=== PATIENT | female | born 1935 | race Caucasian/White ===

== ENCOUNTER 2016-05-19 16:15 | Inpatient (IN) | payer MEDICARE ==
[2016-05-19] MEDS ORDERED: LACTATED RINGERS 2,000 ML ONE (17:11)
[2016-05-19 17:12] LABS: ABSOLUTE NEUTROPHIL COUNT 7.2 K/mm3 (1.8-7.7); BASO % 0.4 % (0.2-1.0); EOS # 0.1 (0.0-0.5); EOS % 0.8 % (0.9-2.9); HEMATOCRIT 37.4 % (37.0-47.0); IMM NEUT% 0.4 % (0-1); LYMPH # 1.8 (1.0-4.8); LYMPH % 17.3 % (15-45); MEAN CELL VOLUME 91.4 fl (81.0-99.0); MEAN CORPUSCULAR HEMOGLOBIN 29.3 pg (27.0-31.0); MEAN CORPUSCULAR HGB CONC 32.1 g/dl (33.0-37.0); MEAN PLATELET VOLUME 11.2 fl (7.4-10.4); MONO # 1.2 (0.0-0.8); MONO % 11.5 % (4-12); NEUT % 69.6 % (43-75); PLATELET COUNT 256 K/mm3 (130-400); RED CELL DISTRIBUTION WIDTH 13.9 % (11.5-14.5); URINE BILIRUBIN NEGATIVE (NEGATIVE); URINE BLOOD 1+ (NEGATIVE); URINE GLUCOSE (UA) 1+ (NEGATIVE); URINE LEUKOCYTE ESTERASE TRACE (NEGATIVE); URINE NITRITE NEGATIVE (NEGATIVE); URINE PROTEIN 3+ (NEGATIVE); URINE UROBILINOGEN NORMAL (0-1 mg/dl)
[2016-05-19 17:18] LABS: URINE APPEARANCE SL CLOUDY; URINE COLOR YELLOW
[2016-05-19 17:19] LABS: URINE BACTERIA 4+; URINE EPITHELIAL CELLS 0 /hpf; URINE WBC >50 /hpf
[2016-05-19 17:28] LABS: ALB/GLOB RATIO 1.1 (>1.0); ALBUMIN 3.2 gm/dL (3.5-5.7); CALCIUM 9.3 mg/dL (8.6-10.3)
[2016-05-19] MEDS ORDERED: CEFTRIAXONE 1 GRAM DUPLEX 50 ML IV ONE (17:42)
[2016-05-19] MEDS ORDERED: BISACODYL 5 MG TABLET.EC PO PRN (18:48)
[2016-05-19] MEDS ORDERED: BISACODYL 10 MG SUP PR PRN (18:48)
[2016-05-19] MEDS ORDERED: SODIUM CHLORIDE 0.9% 100 ML IV PRN (18:48)
[2016-05-19] MEDS ORDERED: ACETAMINOPHEN 325 MG TABLET PO PRN (18:48)
[2016-05-19] MEDS ORDERED: BLISTEX LIPSTICK 1 EACH TP PRN (18:48)
[2016-05-19] MEDS ORDERED: MAGNESIUM HYDROXIDE 30 ML UDCUP PO PRN (18:48)
[2016-05-19] MEDS ORDERED: MENTHOL/CETYLPYRD 1 EACH LOZENGE PO PRN (18:48)
[2016-05-19] MEDS ORDERED: SODIUM CHLORIDE 0.9% 1,000 ML IV SCH (19:00)
[2016-05-19 19:19] VITALS: BMI 30.7
[2016-05-19] MEDS: DOCUSATE SODIUM 100 MG CAPSULE PO SCH (21:32)
[2016-05-19] MEDS: INSULIN ASPART (DOSE) 100 UNITS/1 ML SUB-Q PRN (22:15)
[2016-05-20 07:00] LABS: ABSOLUTE NEUTROPHIL COUNT 7.1 K/mm3 (1.8-7.7); BASO % 0.3 % (0.2-1.0); EOS % 0.3 % (0.9-2.9); HEMATOCRIT 33.9 % (37.0-47.0); HEMOGLOBIN 11.1 gm/l (12.0-16.0); IMM NEUT% 0.3 % (0-1); LYMPH # 1.2 (1.0-4.8); LYMPH % 12.2 % (15-45); MEAN CELL VOLUME 88.7 fl (81.0-99.0); MEAN CORPUSCULAR HEMOGLOBIN 29.1 pg (27.0-31.0); MEAN CORPUSCULAR HGB CONC 32.7 g/dl (33.0-37.0); MEAN PLATELET VOLUME 10.9 fl (7.4-10.4); MONO # 1.1 (0.0-0.8); MONO % 12.1 % (4-12); NEUT % 74.8 % (43-75); PLATELET COUNT 205 K/mm3 (130-400); RED CELL DISTRIBUTION WIDTH 13.8 % (11.5-14.5)
--- NOTE | 2016-05-20 07:24 | HP ---
Enma Negron [id number] DATE OF ADMISSION: May 19, 2016 CHIEF COMPLAINT: Altered mental status. HISTORY OF PRESENT ILLNESS: The patient is an 81-year-old female who is a resident at the [facility] facility and her condition changed today. This morning she had a fever up to 100.6 and had garbled speech. Her family was contacted to check in on her and noticed that she was somnolent and confused at times. Difficulty to arouse. She was wanting to sleep a lot and tried to chew up her pills which she normally swallows whole. Based on her altered behavior and the fever family brought her to the clinic for further evaluation. They were not able to complete her work up there and the family decided to take her to the emergency department for further evaluation where she was referred to the hospitalist service for a possible urinary tract infection. She had evidence of pyuria and bacteriuria. She was given fluid bolus and seemed to improve with fluids and antibiotics, but based on her prior encephalopathy and fever she was referred to the hospitalist service for admission. REVIEW OF SYSTEMS: Negative for any recent upper respiratory symptoms, cough, dyspnea, chest pain, wheezing, shortness of breath, or palpations, There has been no reports of any nausea or vomiting. She denies any abdominal pain or back pain. No new arthralgias. No headaches, fainting, blackouts, or seizures. In fact she denies any urinary complaints or urinary frequency. Review of systems is otherwise negative. PAST MEDICAL HISTORY: Significant for a recent hospitalization for a left frontal stroke on April 09, 2016. She was hospitalized at [facility] from April 09 until April 17 and then went to [facility] inpatient rehab until April 28. She then has gone to [facility] ([facility] where she has done well. Her stroke mainly involved the left frontal area and caused an expressive aphasia. No significant motor weakness was identified. She had a wide complex tachycardia while at the hospital and her beta clarisse dose was increased. It looks like her insulin dose may have been adjusted as well. There was some concerns about possible sleep apnea and she has been referred for an outpatient sleep study, but has not yet had that evaluation. She has history of a hospitalization in March 2015 for pneumonia. At that time, she had an ejection fraction of 50% to 55%. She has been followed by [facility] for coronary artery disease which has been stable involving the [place] vessels. She has had no angina. She has had longstanding adult onset diabetes. She has been on insulin in the past, but is currently on oral medications. She has had chronic essential hypertension as well as acquired hypothyroidism on thyroid replacement. She has had dyslipidemia and obesity. PAST SURGICAL HISTORY: Significant for a cardiac catheterization in 2010, stent in the left anterior descending in 2004, a stent in the proximal artery in 1998. She had a three vessel coronary artery bypass in 2010. She has had bilateral cataract surgeries. She has had a prior hysterectomy. She has had left eye surgery for Graves ophthalmopathy. ALLERGIES: DOCUMENTED TO IODINE, LISINOPRIL, SULFA, AND CLINDAMYCIN. CURRENT MEDICATIONS: Obtained from medical record at [facility] includes: 1. Fish oil 1000 mg daily. 2. Multivitamin once daily. 3. Glucotrol 5 mg every morning. 4. Vytorin 10/20 mg daily in the evening. 5. Potassium chloride 20 mEq in the morning, 10 mEq in the evening. 6. Protonix 40 mg by mouth daily. 7. Lopressor 100 mg by mouth twice daily. 8. Cozaar 50 mg by mouth twice daily. 9. Levothroid 125 mcg every morning. 10. Lactobacillus 2 daily. 11. Lasix 40 mg by mouth twice daily. 12. Plavix 75 mg by mouth daily. 13. Amlodipine 5 mg by mouth twice daily. FAMILY HISTOR: Significant for her father who in his 70's of colon cancer. Mother in her 70's of ovarian cancer. SOCIAL HISTORY: Patient is retired. She is . She is currently living at [facility] She has 5 children. She has never smoked. There is no alcohol use. Her primary care provider is Dr. Clarence Martinez. Her code status was not discussed today. There is no POLST form on file and will make her full code by default. PHYSICAL EXAMINATION: VITAL SIGNS: Temperature 97.8, pulse 58, blood pressure 163/68, respirations 20, oxygen saturation 88% on room air, 94% on 2 liters. Body mass index 30.7, weight is 76.2 kg. GENERAL: This is an obese female in no acute distress. HEENT: Shows pupils equal, round, and reactive to light. Extraocular movements are intact. No oral lesions are present. LUNGS: Clear to auscultation bilaterally. CARDIOVASCULAR: Reveals a regular rate and rhythm without a murmur. ABDOMEN: Obese, soft, nontender, nondistended with positive bowel sounds. EXTREMITIES: Show trace lower extremity edema. NEUROLOGIC: Currently is nonfocal. She is alert and oriented x3. LABORATORY STUDIES: Included a urinalysis showing over 50 white cells per high power field and 4+ bacteria although, the nitrite is negative and leukocyte esterase shows trace. Chemistry profile shows sodium 139, potassium 3.5, carbon dioxide 33, BUN 13, creatinine 1.0, glucose 144. Liver function tests are normal. Lactate is 1.3. CBC shows a white count of 10.4, hemoglobin of 12.0, platelet count of 256,000. Influenza is negative. ASSESSMENT AND PLAN: Patient has acute encephalopathy associated with an acute bacterial urinary tract infection complicated by adult onset diabetes and hypertension. She also has late effects of a stroke with speech disturbance and some mild swallowing disturbance. She has hypercholesterolemia and coronary artery disease which appear to be stable. She also has hypothyroidism stable on thyroid replacement. She is admitted to the med surg unit. She is treated with Rocephin. I anticipate a 48 hour stay as culture will likely take 48 hours to come back. In meantime, she will get physical therapy and occupational therapy. Venous thromboembolism risk is moderate and prophylaxis is prescribed in the form mechanical measures. She is also on Plavix. We will clarify code status hopefully before discharge. Further treatment and recommendations will depend on her hospital course. JOB: [id number] CC: Dr. Clarence Martinez
[2016-05-20 07:25] LABS: CALCIUM 8.6 mg/dL (8.6-10.3)
[2016-05-20] MEDS: LEVOTHYROXINE SODIUM 125 MCG TABLET PO SCH (07:27)
[2016-05-20] MEDS ORDERED: FATTY ACIDS PO SCH (09:00)
[2016-05-20] MEDS ORDERED: OMEGA PO SCH (09:00)
[2016-05-20] MEDS ORDERED: FISH OIL PO SCH (09:00)
[2016-05-20] MEDS: METOPROLOL TARTRATE 25 MG TABLET PO SCH ×2 (09:30→21:02)
[2016-05-20] MEDS: PANTOPRAZOLE 40 MG TABLET DR PO SCH (09:31)
[2016-05-20] MEDS: CLOPIDOGREL BISULFATE 75 MG TABLET PO SCH (09:31)
[2016-05-20] MEDS: MULTIVITAMINS 1 TAB TABLET PO SCH (09:31)
[2016-05-20] MEDS: FUROSEMIDE 40 MG TABLET PO SCH ×2 (09:32→16:47)
[2016-05-20] MEDS: AMLODIPINE BESYLATE 5 MG TABLET PO SCH ×2 (09:32→21:02)
[2016-05-20] MEDS: LOSARTAN POTASSIUM 50 MG TABLET PO SCH ×2 (09:32→21:03)
[2016-05-20] MEDS: DOCUSATE SODIUM 100 MG CAPSULE PO SCH ×2 (09:32→21:02)
[2016-05-20] MEDS: POTASSIUM CHLORIDE 20 MEQ TAB.PRT.SR PO SCH (09:33)
[2016-05-20] MEDS: GLIPIZIDE 5 MG TABLET PO SCH (09:33)
--- NOTE | 2016-05-20 11:17 | PDOC43 ---
- Subjective Chief Complaint: fever, confusion improving Subjective: Denies Vomiting, Denies Fever - Objective Vital Signs Temperature 98.6 F 05/20/16 07:38 Pulse Rate 64 05/20/16 07:38 Respiratory Rate 14 05/20/16 07:38 Blood Pressure 169/65 05/20/16 07:38 O2 Saturation by Pulse Oximetry 95 05/20/16 07:38 Oxygen Delivery Method Nasal Cannula Oxygen Flow Rate 2 Intake and Output 05/19/16 05/20/16 05/21/16 06:59 06:59 06:59 Intake Total 150 Output Total 350 450 Balance -200 -450 General: Alert, Cooperative, No Acute Distress HEENT: Mucous membr. moist/pink Lungs: Clear to Auscultation Bilaterally Cardiovascular: Regular Rate and Rhythm Abdomen: Soft, Normal Bowel Sounds, Non-Distended, No Tenderness Extremities: No Edema Skin: Warm, Intact Neurological: Cranial Nerves 3-12 Intact, Other (some expressive aphasia when fatigued but overall communicates well) Laboratory 05/20/16 06:45 05/20/16 06:45 05/20/16 05/20/16 05/19/16 07:31 06:45 22:12 RBC 3.82 L MCHC 32.7 L POC Capillary Glucose 219 H 243 H Current Medications: Current meds reviewed in EMR. - Problems: Assessment/Plan (1) Encephalopathy acute Status: Acute Assessment/Plan: present on admit, assoc. with fever and suspected UTI-improved (2) UTI (urinary tract infection) Qualifiers: Urinary tract infection type: acute cystitis Hematuria presence: without hematuria Qualifier Code: (N30.00) Acute cystitis without hematuria Status: Acute Assessment/Plan: assoc with fever and encephalopathy, improving on rocephin-await Cx results (3) Diabetes mellitus type II, controlled Qualifiers: Diabetes mellitus complication status: without complication Diabetes mellitus jail insulin use: without deckhand use Qualifier Code: (E11.9 ) Type 2 diabetes mellitus without complications Status: Chronic Assessment/Plan: on glucotrol and correction Novolog (4) Hypertension Qualifiers: Hypertension type: essential hypertension Qualifier Code: (I10) Essential (primary) hypertension Status: Chronic Assessment/Plan: stable on usual meds (5) Hypoxemia Status: Acute Assessment/Plan: suspect due to untreated obst. sleep apsusi, has referral for sleep study in process-check a CXR, oxygen prn (6) Late effects of cerebrovascular disease, fluency disorder Status: Acute Assessment/Plan: mild exp. aphasia at times-stable (7) CAD (coronary artery disease) Qualifiers: Coronary Disease-Associated Artery/Lesion type: [place] artery [place] vs. transplanted heart: [place] heart Associated angina: without angina Qualifier Code: (I25.10) Atherosclerotic heart disease of [place] coronary artery without angina pectoris Status: Chronic Assessment/Plan: stable (8) Hypothyroidism Qualifiers: Hypothyroidism type: acquired Qualifier Code: (E03.9) Hypothyroidism, unspecified Status: Chronic Assessment/Plan: stable VTE Prophylaxis: mech measures plus Plavix Disposition: probably return to assisted living in am
[2016-05-20] MEDS: INSULIN ASPART (DOSE) 100 UNITS/1 ML SUB-Q PRN ×2 (11:52→17:24)
[2016-05-20] MEDS: INSULIN GLARGINE (DOSE) 100 UNITS/ML UNIT SUB-Q SCH ×2 (11:52→21:01)
[2016-05-20] MEDS ORDERED: PUMP TUBING ONE (16:55)
[2016-05-20] MEDS ORDERED: CEFTRIAXONE 1 GRAM DUPLEX 1 G in Premix (D5W) 50 ml 1 EACH IV SCH (17:00)
[2016-05-20] MEDS ORDERED: EZETIMIBE 10 MG TABLET PO SCH (20:00)
[2016-05-20] MEDS ORDERED: POTASSIUM CHLORIDE 10 MEQ TAB.SR PO SCH (20:00)
[2016-05-20] MEDS ORDERED: SIMVASTATIN 10 MG TABLET PO SCH (20:00)
[2016-05-21] MEDS: LEVOTHYROXINE SODIUM 125 MCG TABLET PO SCH (07:56)
[2016-05-21 08:00] VITALS: BP 170/68
[2016-05-21] MEDS: LOSARTAN POTASSIUM 50 MG TABLET PO SCH (08:58)
[2016-05-21] MEDS: DOCUSATE SODIUM 100 MG CAPSULE PO SCH (08:58)
[2016-05-21] MEDS: GLIPIZIDE 5 MG TABLET PO SCH (08:58)
[2016-05-21] MEDS: FUROSEMIDE 40 MG TABLET PO SCH (08:59)
[2016-05-21] MEDS: INSULIN GLARGINE (DOSE) 100 UNITS/ML UNIT SUB-Q SCH (08:59)
[2016-05-21] MEDS: POTASSIUM CHLORIDE 20 MEQ TAB.PRT.SR PO SCH (08:59)
[2016-05-21] MEDS: METOPROLOL TARTRATE 25 MG TABLET PO SCH (09:00)
[2016-05-21] MEDS: AMLODIPINE BESYLATE 5 MG TABLET PO SCH (09:02)
[2016-05-21] MEDS: MULTIVITAMINS 1 TAB TABLET PO SCH (09:02)
[2016-05-21] MEDS: PANTOPRAZOLE 40 MG TABLET DR PO SCH (09:02)
[2016-05-21] MEDS: CLOPIDOGREL BISULFATE 75 MG TABLET PO SCH (09:02)
[2016-05-21] MEDS: INSULIN ASPART (DOSE) 100 UNITS/1 ML SUB-Q PRN ×2 (09:03→11:49)
[2016-05-21] MEDS ORDERED: CEPHALEXIN 500 MG CAPSULE PO SCH (10:00)
--- NOTE | 2016-05-21 12:38 | RAD ---
05/21/2016 12:33 PM CHEST - 2 VIEWS History: Hypoxemia Comparison: 03/29/2015 Findings: Two views of the chest are obtained. The lungs there is been improvement in the left sided effusion in comparison to prior study. Tiny bilateral effusions may be present with associated compressive atelectasis. Underlying pneumonia cannot be excluded. Continued prominence to the right hilum is identified though the left grossly unremarkable. The cardiomediastinal silhouette is unremarkable.. The osseous structures are intact.. Median sternotomy wires are present. IMPRESSION: Improvement in the patient's effusion and edema from prior study. Tiny effusions are still persistent with prominence of the right hilum. Correlation with exam for venous congestion is recommended..
--- NOTE | 2016-05-21 13:43 | DS ---
Enma Negron [id number] DATE OF ADMISSION: May 19, 2016 DATE OF DISCHARGE: May 21, 2016 DISCHARGE DIAGNOSES: 1. Acute encephalopathy due to afebrile urinary tract infection. The urinary tract infection was caused Escherichia coli. 2. Adult onset diabetes. 3. Chronic essential hypertension. 4. Patient also has late effects of a stroke with speech disturbance and some mild swallowing dysfunction. 5. Chronic hypercholesterolemia. 6. Stable coronary artery disease involving the [place] vessels. 7. Hypothyroidism. TO SUMMARIZE THE ADMISSION AND HOSPITAL COURSE: The patient is an 81-year-old female resident of [facility] brought to the [facility] emergency department by her family because of fever and garble speech. Work up in the emergency department showed evidence of bacteriuria and pyuria. Her white blood cell count was normal. At the time of her evaluation she was not febrile. She did have over 50 white blood cells per high power field on her urinalysis. Her electrolytes and urine were normal. Lactate was normal and she was referred to the hospitalist service for admission. During her hospital stay she was treated with Rocephin. She remained afebrile. Urine culture grew E-coli which was coto sensitive. Patient was noted to have some mild hypoxemia particularly while at rest felt to be due to untreated longstanding obstructive sleep apnea and arrangements were made for home oxygen therapy. A chest x-ray preformed on the day of discharge showed no acute abnormality and small bilateral pleural effusions with cardiomegaly. The patient was felt to be medically stable for discharge on May 21. Her encephalopathy improved back to her baseline dementia. PHYSICAL EXAMIANTION: VITAL SIGNS: At discharge her vital showed a temperature of 98.0, pulse 64, blood pressure of 170/68, respirations 19, oxygen saturations fluctuated, but were 87% on room air up to 91% on room air. Body mass index was 30.7 and weight was 76.2 kg. GENERAL: This is an obese elderly female in acute distress. HEENT: Unremarkable. LUNGS: Clear to auscultation bilaterally. CARDIOVASCULAR: Reveals a regular rate and rhythm without a murmur. ABDOMEN: Obese, soft, nontender, nondistended with positive bowel sounds. EXTREMITIES: Show no peripheral edema. LABORATORY STUDIES: Included chemistry profile on May 20 showing normal electrolytes and a creatinine of 0.8. CBC on May 20 showed a normal white count, hemoglobin of 11.1, and a platelet count of 205,000. DISPOSITION: Back to [facility] living. She will get skin care, bowel care, podiatry care per house protocol. Her flu and pneumonia vaccinations are up to date. DISCHARGE MEDICATIONS: She was prescribed: 1. Lantus insulin 10 units subcutaneously twice daily due to elevation in her blood sugars. 2. Keflex 500 mg three times daily for ten more days for her urinary tract infection. She will resume her previous home medications which include: 1. Amlodipine 5 mg by mouth twice daily. 2. Plavix 75 mg by mouth daily. 3. Lasix 40 mg by mouth twice daily. 4. Probiotic two tablets daily. 5. Levothroid 125 mcg daily. 6. Cozaar 50 mg twice daily. 7. Lopressor 100 mg twice daily. 8. Protonix 40 mg daily. 9. Potassium chloride 20 mEq in the morning and 10 mEq in the evening. 10. Vytorin 10/20 mg in the evening. 11. Glucotrol 5 mg every morning. 12. Multivitamin once daily. 13. [place]iteside 3 fatty acids 1000 mg daily. DISCHARGE INSTRUCTIONS: Arrangements were made for home oxygen therapy at 2 liters by nasal cannula through [facility]. She will also get rehab services with physical therapy and occupational therapy evaluate and treat. She has a follow up appointment scheduled with Dr. Clarence Martinez on June 12 at 2:50 p.m. and she already has made arrangements to get an outpatient sleep study through the sleep center in [place]. CODE STATUS: Full code. ALLERGIES: INCLUDE IODINE, LISINOPRIL, SULFA, AND CLINDAMYCIN. DIET: She will be on a diabetic diet with regular texture. ACTIVITY: As tolerated. Weightbearing as tolerated. JOB: [id number] CC: Dr. Clarence Martinez
== END 2016-05-21 14:00 | DRG 71 ==
LOC: ED 16:15 → MS 17:56
PROVIDERS: ADMIT Family Medicine; ATTEND Family Medicine
DX: G93.40 Encephalopathy, unspecified (principal); N39.0 Urinary tract infection, site not specified; I67.89 Other cerebrovascular disease; B96.20 Unspecified Escherichia coli [E. coli] as the cause of diseases classified elsewhere; E11.9 Type 2 diabetes mellitus without complications; I10 Essential (primary) hypertension; E78.00 Pure hypercholesterolemia, unspecified; I25.10 Atherosclerotic heart disease of native coronary artery without angina pectoris; E03.9 Hypothyroidism, unspecified

== ENCOUNTER 2016-06-28 09:53 | Inpatient (IN) | payer MEDICARE ==
[2016-06-28] MEDS ORDERED: FUROSEMIDE 40 MG/4 ML VIAL ONE (10:19)
[2016-06-28] MEDS ORDERED: ALBUTEROL/IPRATROPIUM 2.5/0.5 MG 3 ML/EACH DOSE ONE (10:30)
[2016-06-28 10:56] LABS: SPECIFIC GRAVITY 1.015 (1.001-1.030); URINE BILIRUBIN NEGATIVE (NEGATIVE); URINE BLOOD 1+ (NEGATIVE); URINE GLUCOSE (UA) NEGATIVE (NEGATIVE); URINE LEUKOCYTE ESTERASE NEGATIVE (NEGATIVE); URINE NITRITE NEGATIVE (NEGATIVE); URINE PROTEIN 3+ (NEGATIVE); URINE UROBILINOGEN 1 mg/dL (0-1 mg/dl)
[2016-06-28 10:56] LABS: ABSOLUTE NEUTROPHIL COUNT 9.4 K/mm3 (1.8-7.7); BASO # 0.1 K/mm3 (0.0-0.2); BASO % 0.4 % (0.2-1.0); EOS # 0.1 (0.0-0.5); EOS % 0.5 % (0.9-2.9); HEMATOCRIT 38.7 % (37.0-47.0); HEMOGLOBIN 12.3 gm/l (12.0-16.0); IMM NEUT% 0.2 % (0-1); LYMPH # 1.1 (1.0-4.8); LYMPH % 9.2 % (15-45); MEAN CELL VOLUME 89.8 fl (81.0-99.0); MEAN CORPUSCULAR HEMOGLOBIN 28.5 pg (27.0-31.0); MEAN CORPUSCULAR HGB CONC 31.8 g/dl (33.0-37.0); MEAN PLATELET VOLUME 10.5 fl (7.4-10.4); MONO # 1.5 (0.0-0.8); MONO % 12.5 % (4-12); NEUT % 77.2 % (43-75); PLATELET COUNT 294 K/mm3 (130-400); RED CELL DISTRIBUTION WIDTH 14.2 % (11.5-14.5)
[2016-06-28 10:57] LABS: URINE APPEARANCE HAZY; URINE COLOR AMBER
[2016-06-28 11:03] LABS: URINE AMORPHOUS SEDIMENT MODERATE; URINE BACTERIA 4+; URINE EPITHELIAL CELLS 0-1 /hpf; URINE WBC 0-1 /hpf
[2016-06-28 11:14] LABS: ALB/GLOB RATIO 1.2 (>1.0); ALBUMIN 3.5 gm/dL (3.5-5.7); CALCIUM 9.2 mg/dL (8.6-10.3)
--- NOTE | 2016-06-28 11:22 | RAD ---
Name: JUAN M DENTON Exam: Single view chest Comparison: 06/26/2016 Clinical history: Increased shortness of breath Findings: Single view of the chest is submitted. This is a low volume exam. Heart is enlarged but similar in size to the prior. There is no mediastinal widening or hilar enlargement. Diffuse vascular congestion is present. There is some interstitial edema. There is no significant effusion and there is no pneumothorax. Midline sternotomy wires are present. Regional skeleton is within normal limits for the patient's age. Impression: Congestive heart failure
[2016-06-28] MEDS ORDERED: BISACODYL 5 MG TABLET.EC PO PRN (12:57)
[2016-06-28] MEDS ORDERED: ALBUTEROL/IPRATROPIUM 2.5/0.5 MG 3 ML/EACH DOSE NEB PRN (12:57)
[2016-06-28] MEDS ORDERED: MAGNESIUM HYDROXIDE 30 ML UDCUP PO PRN (12:57)
[2016-06-28] MEDS ORDERED: BLISTEX LIPSTICK 1 EACH TP PRN (12:57)
[2016-06-28] MEDS ORDERED: MENTHOL/CETYLPYRD 1 EACH LOZENGE PO PRN (12:57)
[2016-06-28] MEDS ORDERED: BISACODYL 10 MG SUP PR PRN (12:57)
[2016-06-28] MEDS ORDERED: NITROGLYCERIN 0.4 MG/TAB.SUBL BOT SL PRN (13:57)
[2016-06-28 14:37] VITALS: BMI 32.8
--- NOTE | 2016-06-28 15:10 | HP ---
DIEGO DENTON [id number] DATE OF ADMISSION: June 28, 2016 CHIEF COMPLAINT: Dyspnea. HISTORY OF PRESENT ILLNESS: The patient is an 81-year-old female with recent hospitalizations for left frontal stroke, March,, and urinary tract infection with altered mental status late April,. This week on Thursday she was noted to have some increased swelling of the legs, and they spoke with the nurse on the phone and later saw Dr. Delgado on Thursday who doubled her Lasix. She had not had any preceding events or medication changes that were likely to have provoked this. She had been busy going to activities including a and an eye doctor appointment. She followed up with Dr. Martinez on and had a chest x-ray and had generally been doing better. On Thursday was doing pretty good, but this morning woke up sweating and could not breathe. PAST MEDICAL HISTORY: Remarkable for: 1. Stroke with some aphagia which has since improved in 2015. 2. She has had diabetes and uses Lantus as well as glipizide. 3. She has had a history of coronary artery disease. 4. History of hypertension. 5. History of hypothyroidism. 6. History of dyslipidemia. 7. History of obesity. 8. History of Ward's esophagus. 9. History of atrial fibrillation after surgery but not recently. She is on Plavix. She has had echocardiograms in the past showing pulmonary artery systolic pressure 65 to 70 mmHg. Restrictive diastolic dysfunction, ejection fraction 52% last done in 2014. PAST SURGICAL HISTORY: 1. Stent placed in 1998. She had another stent in 2004. Catheterization in 2010 which resulted in a coronary artery bypass graft in 2010. 2. She has had bilateral cataract replacements. 3. Hysterectomy. 4. Surgery for left eye problems related to hypothyroidism at [facility]. ALLERGIES: She is listed as being allergic to: 1. IODINE. 2. LISINOPRIL. 3. SULFA. 4. CLINDAMYCIN. 5. METFORMIN. MEDICATIONS: Taken from the Medication Administration Record at [facility] show: 1. Amlodipine 5 orally twice daily. 2. Clonidine 0.2 mg orally twice daily. 3. Clopidogrel 75 mg daily. 4. Cranberry 200 mg orally twice daily. 5. Vytorin 10/20 one orally daily in the evening. 6. Lasix 40 mg orally twice daily increased recently to 80 mg orally twice daily. 7. Glipizide 5 mg orally in the morning. 8. Lantus unspecified dosage at this time but the old dosage was 10 units every 12 hours. We are awaiting the followup fax from [facility] on this. 9. Lactobacillus two orally daily. 10. Levothyroxine 125 mcg daily. 11. Losartan 50 mg orally twice daily. 12. Metoprolol tartrate 100 mg orally twice daily. 13. Multivitamin one orally daily. 14. Nitroglycerin 0.4 mg sublingually every five minutes as needed for chest pain. 15. Fish oil one orally daily. 16. Pantoprazole 40 mg orally daily. 17. Potassium chloride 20 mEq in the morning and 10 mEq in the evening. 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 She is . She is currently staying at [facility]. She has five children. No smoking. History of alcoholism, quit 35 years ago. She is [employer]. Likes family and reading although has not been able to do her normal activities since her stroke. FAMILY HISTORY: Father in his 70s of colon cancer. Mom in her 70s of ovarian cancer. REVIEW OF SYSTEMS: Eyes, she was seen by her eye doctor this week and was thought to have a possible detached retina although they are not sure. She is noted to have poor central vision as well. Ears are okay. She has some headache. Nose has been okay. Mouth, she had a dental appointment a while ago and was doing okay. Neck is okay. Breathing, she has had recent difficulties but no sputum. She has had some cough noted today. She has had no chest pain or chest pressure and has denied this even when asked earlier today. No nausea, no vomiting, no diarrhea. Perhaps a little constipation. No urinary complaints. She had complained that she felt like her face skin felt like it was crumbling recently but family has not noticed any rash or any changes. No breast complaints, no vaginal complaints. She had her stroke. She has had fairly stable activity tolerance up to this week, able to walk between 50 and 300 feet. She has had no recent falls. She did report being dizzy with some vertiginous symptoms during the night. PHYSICAL EXAM: GENERAL: Dyspneic, tired female doing better with BiPAP. VITAL SIGNS: Her vital signs show a pulse of 51, blood pressure 146/61, respirations 18, 96% saturation on BiPAP, 25% FiO2. HEAD: Head is normocephalic, atraumatic. EYES: Pupils are slightly small but appropriately reactive. Extraocular muscles are intact. No icterus is noted. EARS: Some cerumen is noted. Hearing appears to be adequate. NOSE: Is grossly unremarkable but difficult to visualize with the BiPAP mask on. MOUTH: Mucous membranes are moist. Dentition appears to be intact although visualized through a BiPAP mask. NECK: Some jugular venous distension suggested. No masses or thyromegaly noted. Patient has difficulty swallowing due to dry mouth. LUNGS: Fairly diminished air movement bilaterally with a few crackles noted at the base more on the left than the right. HEART: Bradycardic but no significant murmur noted. ABDOMEN: Large abdominal wall hernia is noted just to the left of the midline between the umbilicus and the xyphoid. It is approximately 2 to 3 cm in diameter. It is firm and not reducible. Patient indicates it is not particularly tender and has been there a long time. BREAST: Exam is deferred. GENITOURINARY: Exam is deferred. EXTREMITIES: Legs have trace edema bilaterally. Feet are in good condition. Nails in good repair. No ulcerations are noted. Pulses are good in feet bilaterally. Hands are unremarkable. NEUROLOGIC: She is able to squeeze hands on both sides and follow commands and answer questions although family reports she had been a little bit confused. LABORATORY: White count 12.1, hemoglobin 12.3, platelets 294, sodium 138, potassium 3.5, chloride 96, CO2 34, BUN 13, creatinine 0.9, glucose 128, AST 15, ALT 13, alkaline phosphatase 73, CK-MB 1.6, troponin is 0.03. BNP greater than 1250. Albumin 3.5, globulin 3.8. Urinalysis, 3+ protein, 5 to 10 red cells, 0 to 1 white cells, 4+ bacteria, 0 to 1 epithelial cells. IMAGING: Chest x-ray suggests congestive heart failure. Electrocardiogram shows sinus bradycardia at 56 beats per minute. VT 189, QRS 104, QTc 433, axis 56, nonspecific ST changes noted. ASSESSMENT AND PLAN: 1. Acute congestive heart failure on top of known chronic diastolic heart failure with known pulmonary hypertension and diastolic dysfunction. Plan BiPAP, cautious use of Lasix, echocardiography, monitor troponin and CK-MB. 2. History of pulmonary hypertension. Anticipate cautious use of diuretics. Previous ejection fraction was 55%. 3. Prior history of stroke. We will continue on Plavix. 4. History of coronary artery disease. We will be checking troponin and CK which so far have been negative. Continue on metoprolol. 5. History of atrial fibrillation but maintaining sinus bradycardia at this time. She is not on anticoagulation. 6. Diabetes mellitus type 2. We will be checking capillary blood glucoses and sliding scale, awaiting confirmation of the Lantus dose and will anticipate continuing on this as well. 7. Hypothyroidism. We will be checking a TSH. Continue on supplement. 8. History of Ward's esophagus. Will continue on the Protonix. 9. Acute respiratory failure due to congestive heart failure. Patient has good improvement after BiPAP, a dose Lasix and nebulizer treatment. We will continue to monitor and anticipate being able to wean later. 10. Venous thrombosis prophylaxis, anticipate use of enoxaparin. 11. Code status is DO NOT RESUSCITATE per POLST form. 12. Bacteruria with 3+ proteinuria suggested on the urine. We will be checking a culture although she has negative leukocyte esterase and negative nitrites noted. cc: Clarence Martinez M.D. Chandrakant Patel M.D.
[2016-06-28] MEDS: ENOXAPARIN SODIUM 40 MG/0.4 ML SYRINGE SUB-Q SCH (15:15)
[2016-06-28] MEDS: FUROSEMIDE 40 MG/4 ML VIAL IV SCH (15:59)
[2016-06-28] MEDS: Magnesium Oxide 400 MG TABLET PO SCH ×2 (16:29→20:08)
[2016-06-28] MEDS: INSULIN ASPART (DOSE) 100 UNITS/1 ML SUB-Q SCH (16:52)
[2016-06-28] MEDS ORDERED: EZETIMIBE PO SCH (20:00)
[2016-06-28] MEDS ORDERED: POTASSIUM CHLORIDE 10 MEQ TAB.SR PO SCH (20:00)
[2016-06-28] MEDS ORDERED: SIMVASTATIN PO SCH (20:00)
[2016-06-28] MEDS: SIMVASTATIN 10 MG TABLET PO SCH (20:07)
[2016-06-28] MEDS: EZETIMIBE 10 MG TABLET PO SCH (20:08)
[2016-06-28] MEDS: DOCUSATE SODIUM 100 MG CAPSULE PO SCH (20:08)
[2016-06-28] MEDS: AMLODIPINE BESYLATE 5 MG TABLET PO SCH (20:09)
[2016-06-28] MEDS: CLONIDINE HCL 0.1 MG TABLET PO SCH (20:09)
[2016-06-28] MEDS: LOSARTAN POTASSIUM 50 MG TABLET PO SCH (20:09)
[2016-06-28] MEDS: CLOPIDOGREL BISULFATE 75 MG TABLET PO SCH (20:09)
[2016-06-28] MEDS: METOPROLOL TARTRATE 100 MG TABLET PO SCH (20:10)
[2016-06-28] MEDS ORDERED: INSULIN GLARGINE (DOSE) 100 UNITS/ML UNIT SUB-Q SCH (21:00)
[2016-06-29 05:43] LABS: ABSOLUTE NEUTROPHIL COUNT 9.7 K/mm3 (1.8-7.7); BASO % 0.3 % (0.2-1.0); EOS % 0.2 % (0.9-2.9); HEMATOCRIT 36.6 % (37.0-47.0); HEMOGLOBIN 11.8 gm/l (12.0-16.0); IMM NEUT% 0.2 % (0-1); LYMPH # 0.8 (1.0-4.8); LYMPH % 6.8 % (15-45); MEAN CELL VOLUME 89.3 fl (81.0-99.0); MEAN CORPUSCULAR HEMOGLOBIN 28.8 pg (27.0-31.0); MEAN CORPUSCULAR HGB CONC 32.2 g/dl (33.0-37.0); MEAN PLATELET VOLUME 10.8 fl (7.4-10.4); MONO # 1.4 (0.0-0.8); MONO % 11.9 % (4-12); NEUT % 80.6 % (43-75); PLATELET COUNT 253 K/mm3 (130-400); RED CELL DISTRIBUTION WIDTH 14.3 % (11.5-14.5)
[2016-06-29 06:05] LABS: ALB/GLOB RATIO 1.2 (>1.0); ALBUMIN 3.2 gm/dL (3.5-5.7); CALCIUM 8.9 mg/dL (8.6-10.3); MAGNESIUM 1.6 mg/dL (1.9-2.7); TROPONIN I 0.03 ng/ml (0.0-0.06)
[2016-06-29 06:08] LABS: CKMB ISOENZYME 0.7 ng/ml (0.6-6.3)
--- NOTE | 2016-06-29 07:28 | PDOC43 ---
- Subjective Chief Complaint: Dyspnea, CHF Patient reports feeling better, breathing better. Got some sleep today. No new c /o, no pains. Metoprolol held last night due to bradycardia. - Objective Vital Signs Temperature 97.9 F 06/29/16 04:39 Pulse Rate 61 06/29/16 04:39 Respiratory Rate 14 06/29/16 04:39 Blood Pressure 180/65 06/29/16 04:39 O2 Saturation by Pulse Oximetry 94 06/29/16 04:39 Oxygen Delivery Method Bi-PAP Vital Signs Last 12 Hours Temp Pulse Resp BP Pulse Ox 06/29/16 04:39 97.9 F 61 14 180/65 94 06/29/16 04:28 61 94 06/29/16 04:17 14 06/29/16 01:46 62 96 06/28/16 23:47 55 95 06/28/16 23:41 97.6 F 54 14 178/60 95 06/28/16 23:39 14 06/28/16 20:40 54 93 06/28/16 20:00 97.8 F 53 15 169/51 92 06/28/16 19:27 415 06/28/16 19:24 54 91 Intake and Output 06/27/16 06/28/16 06/30/16 23:59 23:59 00:59 Intake Total 100 Output Total 1155 425 Balance -1055 -425 Intake & Output 06/28/16 06/28/16 06/29/16 15:59 23:59 08:59 Intake Total 100 Output Total 1155 425 Balance -1055 -425 Weight 84.2 kg 83.9 kg Intake: PO Intake 100 Output: [place] Output 780 425 ER Urine 375 General: Other (answers, but seems sl sleepy. Pleasant affect, pats my hand.) HEENT: Atraumatic Lungs: Clear to Auscultation Bilaterally, Normal Air Movement, Other (no crackles heard.) Cardiovascular: Regular Rate and Rhythm (bradycardia sl improved) Abdomen: Soft, Normal Bowel Sounds, Non-Distended Extremities: No Edema Skin: Normal Color Neurological: Other Psych/Mental Status: Other (sl sleepy affect but reports doing better.) Laboratory 06/29/16 05:20 06/29/16 05:20 06/29/16 06/28/16 05:20 20:38 RBC 4.10 L MCHC 32.2 L POC Capillary Glucose 110 H Magnesium 1.6 L AST 12 L Creatine Kinase 15 L Total Protein 5.8 L Albumin 3.2 L Current Medications: Current meds reviewed in EMR. Active Medications Cardiac Amlodipine Besylate (Norvasc) 5 mg PO BID [facility] Last Admin: 06/28/16 20:09 Dose: 5 mg Clonidine (Catapres) 0.2 mg PO BID [facility] Last Admin: 06/28/16 20:09 Dose: 0.2 mg Clopidogrel Bisulfate (Plavix) 75 mg PO 1999 [facility] Last Admin: 06/28/16 20:09 Dose: 75 mg Ezetimibe (Zetia) 10 mg PO 1999 [facility] Last Admin: 06/28/16 20:08 Dose: 10 mg Furosemide (Lasix) 40 mg IV [id number] [facility] Last Admin: 06/28/16 15:59 Dose: 40 mg Losartan Potassium (Cozaar) 50 mg PO BID [facility] Last Admin: 06/28/16 20:09 Dose: 50 mg Metoprolol Tartrate (Lopressor) 100 mg PO BID [facility] Last Admin: 06/28/16 20:10 Dose: Not Given Simvastatin (Zocor) 20 mg PO 1999 [facility] Last Admin: 06/28/16 20:07 Dose: 20 mg Endocrine Glipizide (Glucotrol) 5 mg PO QAM [facility] Insulin Aspart (Novolog (Dose)) 0 units SUB-Q TIDWM [facility] PRN Reason: Protocol Last Admin: 06/28/16 16:52 Dose: Not Given Insulin Glargine (Lantus (Dose)) 10 units SUB-Q Q12HR [facility] Last Admin: 06/28/16 20:42 Dose: 10 units Levothyroxine Sodium (Levothroid) 125 mcg PO QAMAC [facility] Potassium Chloride (K-Dur) 10 meq PO QPM [facility] Last Admin: 06/28/16 20:08 Dose: 10 meq Potassium Chloride (K-Dur) 20 meq PO QAM [facility] FEN Magnesium Oxide (Magnesium Oxide) 400 mg PO 1200,2100 [facility] Last Admin: 06/28/16 20:08 Dose: 400 mg Miscellaneous (Cranberry [Cranberry]) 500 mg PO BID [facility] Miscellaneous ([place]-3 Fatty Acids/Fish Oil [Eql [place]-3 Fish Oil 1,000 Mg]) 1 each PO DAILY [facility] Multivitamins (One-A-Day) 1 tab PO DAILY [facility] GI Docusate Sodium (Colace) 100 mg PO BID [facility] Last Admin: 06/28/16 20:08 Dose: 100 mg Pantoprazole Sodium (Protonix) 40 mg PO DAILY [facility] PRN Acetaminophen (Tylenol) 650 mg PO Q6H PRN PRN Reason: Pain or Temperature > 100.5 F Benzocaine/Menthol (Cepacol) 1 each PO PRN PRN PRN Reason: Sore Throat Bisacodyl (Dulcolax) 10 mg [place] DAILY PRN PRN Reason: Constipation Bisacodyl (Dulcolax) 5 mg PO DAILY PRN PRN Reason: Constipation Magnesium Hydroxide (Milk Of Magnesia) 30 ml PO DAILY PRN PRN Reason: Constipation Nitroglycerin (Nitrostat) 0.4 mg SL Q5M PRN PRN Reason: Chest Pain Petrolatum/Paraffin/Mineral Oil (Blistex) 1 each TP PRN PRN PRN Reason: Dry and/or chapped lips Pulm Albuterol/Ipratropium (Duoneb) 3 ml NEB Q6H PRN PRN Reason: Wheezing Last Admin: 06/28/16 13:20 Dose: 3 ml VTE Enoxaparin Sodium (Lovenox) 40 mg SUB-Q Q24H [facility] Last Admin: 06/28/16 15:15 Dose: 40 mg - Problems: Assessment/Plan (1) Diastolic CHF, acute on chronic Status: AcuteAssessment/Plan: Previous studies suggest primarily diastolic dysfxn, with pulmonary HTN Diuresis and CPAP have been helpful, appears better this am. (2) Hypoxemia Status: AcuteAssessment/Plan: Improved, but with elevated bicarb and sl sleepiness, would plan ABG Try to avoid CO2 retention, would favor CPAP over increased FiO2. Pt with hx pulmonary HTN, diastolic CHF (3) Diabetes mellitus type II, controlled Qualifiers: Diabetes mellitus complication status: without complication Diabetes mellitus long term care social worker insulin use: without long term care social worker use Qualifier Code: (E11.9 ) Type 2 diabetes mellitus without complications Status: ChronicAssessment/ Plan: Blood sugars doing well, Lantus was held last night due to lower BG. Continue to monitor; continue glipizide (4) Hypertension Qualifiers: Hypertension type: essential hypertension Qualifier Code: (I10) Essential (primary) hypertension Status: ChronicAssessment/Plan: BP edging up with holding of metoprolol, anticipate giving metoprolol this am ( HR is > 55 now) Consider adding/adjusting other meds. (5) CAD (coronary artery disease) Qualifiers: Coronary Disease-Associated Artery/Lesion type: [place] artery [place] vs. transplanted heart: [place] heart Associated angina: without angina Qualifier Code: (I25.10) Atherosclerotic heart disease of [place] coronary artery without angina pectoris Status: ChronicAssessment/Plan: Troponins remain 0.03, stable. Echo planned for 06/30 (6) Late effects of cerebrovascular disease, fluency disorder Status: ChronicAssessment/Plan: Continue on Plavix (7) Hypomagnesemia Status: AcuteAssessment/Plan: On PO Magnesium, but level down some (attributed to Lasix use). Plan further supplement. VTE Prophylaxis: Enoxaparin Disposition: Will remain in IMCU status due to concern for poss needing further CPAP. Anticipate return to facility in 1-3 days.
[2016-06-29] MEDS ORDERED: MAGNESIUM SULFATE 2 G/50 ML 2 G in Premix (Water) 50 ml 1 EACH IV ONE (08:00)
[2016-06-29] MEDS ORDERED: SODIUM CHLORIDE 0.9% 250 ML IV ONE (08:07)
[2016-06-29] MEDS ORDERED: PUMP TUBING ONE (08:08)
[2016-06-29] MEDS: FUROSEMIDE 40 MG/4 ML VIAL IV SCH ×2 (08:24→16:15)
[2016-06-29] MEDS: GLIPIZIDE 5 MG TABLET PO SCH (08:25)
[2016-06-29] MEDS: INSULIN GLARGINE (DOSE) 100 UNITS/ML UNIT SUB-Q SCH ×2 (08:25→21:01)
[2016-06-29] MEDS: DOCUSATE SODIUM 100 MG CAPSULE PO SCH ×2 (08:26→20:09)
[2016-06-29] MEDS: PANTOPRAZOLE 40 MG TABLET DR PO SCH (08:26)
[2016-06-29] MEDS: AMLODIPINE BESYLATE 5 MG TABLET PO SCH ×2 (08:26→20:11)
[2016-06-29] MEDS: METOPROLOL TARTRATE 100 MG TABLET PO SCH ×2 (08:26→20:10)
[2016-06-29] MEDS: LEVOTHYROXINE SODIUM 125 MCG TABLET PO SCH (08:26)
[2016-06-29] MEDS: POTASSIUM CHLORIDE 20 MEQ TAB.PRT.SR PO SCH ×6 (08:26→20:15)
[2016-06-29] MEDS: MULTIVITAMINS 1 TAB TABLET PO SCH (08:26)
[2016-06-29] MEDS: CLONIDINE HCL 0.1 MG TABLET PO SCH ×2 (08:27→20:09)
[2016-06-29] MEDS: LOSARTAN POTASSIUM 50 MG TABLET PO SCH ×2 (08:27→20:10)
[2016-06-29] MEDS: INSULIN ASPART (DOSE) 100 UNITS/1 ML SUB-Q SCH ×3 (08:30→16:14)
[2016-06-29 08:49] LABS: ARTERIAL BLOOD GAS BASE EXCESS 5.2 mmol/L (-2.0-2.0); ARTERIAL BLOOD GAS HCO3 28.4 mmol/L (22.0-28.0); ARTERIAL BLOOD GAS PCO2 36.8 mmHg (35.0-45.0); ARTERIAL BLOOD GAS PO2 55.2 mmHg (80.0-90.0); ARTERIAL BLOOD GAS pH 7.505 (7.350-7.450)
[2016-06-29] MEDS ORDERED: OMEGA PO SCH (09:00)
[2016-06-29] MEDS ORDERED: FATTY ACIDS PO SCH (09:00)
[2016-06-29] MEDS ORDERED: GLIPIZIDE 5 MG TABLET PO SCH (09:00)
[2016-06-29] MEDS ORDERED: FISH OIL PO SCH (09:00)
[2016-06-29] MEDS: Magnesium Oxide 400 MG TABLET PO SCH ×2 (11:54→20:10)
[2016-06-29] MEDS: ENOXAPARIN SODIUM 40 MG/0.4 ML SYRINGE SUB-Q SCH (12:18)
[2016-06-29] MEDS: ACETAMINOPHEN 325 MG TABLET PO PRN (14:42)
[2016-06-29] MEDS: EZETIMIBE 10 MG TABLET PO SCH (20:08)
[2016-06-29] MEDS: SIMVASTATIN 10 MG TABLET PO SCH (20:08)
[2016-06-29] MEDS: CLOPIDOGREL BISULFATE 75 MG TABLET PO SCH (20:10)
[2016-06-30 05:21] LABS: ABSOLUTE NEUTROPHIL COUNT 7.5 K/mm3 (1.8-7.7); BASO # 0.1 K/mm3 (0.0-0.2); BASO % 0.5 % (0.2-1.0); EOS % 0.3 % (0.9-2.9); HEMATOCRIT 35.7 % (37.0-47.0); HEMOGLOBIN 11.3 gm/l (12.0-16.0); IMM NEUT% 0.3 % (0-1); LYMPH # 1.2 (1.0-4.8); LYMPH % 11.4 % (15-45); MEAN CELL VOLUME 90.2 fl (81.0-99.0); MEAN CORPUSCULAR HEMOGLOBIN 28.5 pg (27.0-31.0); MEAN CORPUSCULAR HGB CONC 31.7 g/dl (33.0-37.0); MEAN PLATELET VOLUME 10.8 fl (7.4-10.4); MONO # 1.6 (0.0-0.8); NEUT % 72.5 % (43-75); PLATELET COUNT 227 K/mm3 (130-400); RED CELL DISTRIBUTION WIDTH 14.3 % (11.5-14.5)
[2016-06-30 05:45] LABS: ALB/GLOB RATIO 1.1 (>1.0); ALBUMIN 2.9 gm/dL (3.5-5.7); CALCIUM 8.9 mg/dL (8.6-10.3); MAGNESIUM 1.9 mg/dL (1.9-2.7)
[2016-06-30] MEDS: LEVOTHYROXINE SODIUM 125 MCG TABLET PO SCH (07:21)
[2016-06-30] MEDS: GLIPIZIDE 5 MG TABLET PO SCH (07:54)
[2016-06-30] MEDS: FUROSEMIDE 40 MG/4 ML VIAL IV SCH ×2 (08:02→17:18)
[2016-06-30] MEDS: PANTOPRAZOLE 40 MG TABLET DR PO SCH (08:02)
[2016-06-30] MEDS: POTASSIUM CHLORIDE 20 MEQ TAB.PRT.SR PO SCH ×4 (08:02→21:56)
[2016-06-30] MEDS: INSULIN GLARGINE (DOSE) 100 UNITS/ML UNIT SUB-Q SCH ×2 (08:02→21:43)
[2016-06-30] MEDS: MULTIVITAMINS 1 TAB TABLET PO SCH (08:03)
[2016-06-30] MEDS: CLONIDINE HCL 0.1 MG TABLET PO SCH ×2 (08:03→21:43)
[2016-06-30] MEDS: LOSARTAN POTASSIUM 50 MG TABLET PO SCH ×2 (08:03→21:44)
[2016-06-30] MEDS: AMLODIPINE BESYLATE 5 MG TABLET PO SCH ×2 (08:03→21:45)
[2016-06-30] MEDS: METOPROLOL TARTRATE 100 MG TABLET PO SCH ×2 (08:03→21:44)
[2016-06-30] MEDS: DOCUSATE SODIUM 100 MG CAPSULE PO SCH ×2 (08:03→21:45)
[2016-06-30] MEDS: INSULIN ASPART (DOSE) 100 UNITS/1 ML SUB-Q SCH ×3 (08:07→17:25)
--- NOTE | 2016-06-30 10:57 | PDOC43 ---
- Subjective Chief Complaint: Dyspnea, CHF Has been off Bipap last 24 hr, just 2 L. Sats ok. Did work with PT, OT, 2 person assist, still weak, but did stand x 3. Eating some this am, 50%. Reported to be clearer this am, more conversant today. Pt did have leg pains bilat yesterday, seem quite a bit better today. No new c/ o. - Objective Vital Signs Temperature 98.5 F 06/30/16 06:52 Pulse Rate 58 06/30/16 06:52 Respiratory Rate 22 06/30/16 07:03 Blood Pressure 174/65 06/30/16 06:52 O2 Saturation by Pulse Oximetry 95 06/30/16 06:52 Oxygen Delivery Method Nasal Cannula Oxygen Flow Rate 2.5 Vital Signs Last 12 Hours Temp Pulse Resp BP Pulse Ox 06/30/16 07:03 22 06/30/16 06:52 98.5 F 58 22 174/65 95 06/30/16 02:53 98.4 F 54 14 152/53 93 06/30/16 02:29 14 06/29/16 22:50 98.8 F 55 15 152/46 93 Intake and Output 06/28/16 06/29/16 06/30/16 22:59 23:59 23:59 Intake Total 720 Output Total 280 Balance 440 General: Alert, Cooperative, Other (smiling, conversant. Answers appropriately) , No Acute Distress Lungs: Clear to Auscultation Bilaterally Cardiovascular: Regular Rate and Rhythm Abdomen: Soft, Normal Bowel Sounds, Non-Distended, Other (Firm hernia on abd wall) Extremities: Other (legs a little tender to palpation) Skin: Normal Color Neurological: Normal Speech Psych/Mental Status: Normal Affect, Normal Mood, Other (appears to be feeling much better.) Laboratory 06/30/16 05:00 06/30/16 05:00 06/30/16 06/30/16 06/29/16 07:00 05:00 20:51 RBC 3.96 L MCHC 31.7 L Estimated GFR 53 L POC Capillary Glucose 160 H 173 H AST 10 L Total Protein 5.5 L Albumin 2.9 L 06/29/16 06/29/16 16:14 11:50 RBC MCHC Estimated GFR POC Capillary Glucose 130 H 115 H AST Total Protein Albumin Current Medications: Current meds reviewed in EMR. Active Medications Acetaminophen (Tylenol) 650 mg PO Q6H PRN PRN Reason: Pain or Temperature > 100.5 F Last Admin: 06/29/16 14:42 Dose: 650 mg Albuterol/Ipratropium (Duoneb) 3 ml NEB Q6H PRN PRN Reason: Wheezing Last Admin: 06/28/16 13:20 Dose: 3 ml Amlodipine Besylate (Norvasc) 5 mg PO BID [facility] Last Admin: 06/30/16 08:03 Dose: 5 mg Benzocaine/Menthol (Cepacol) 1 each PO PRN PRN PRN Reason: Sore Throat Bisacodyl (Dulcolax) 10 mg [place] DAILY PRN PRN Reason: Constipation Bisacodyl (Dulcolax) 5 mg PO DAILY PRN PRN Reason: Constipation Clonidine (Catapres) 0.2 mg PO BID [facility] Last Admin: 06/30/16 08:03 Dose: 0.2 mg Clopidogrel Bisulfate (Plavix) 75 mg PO 1999 [facility] Last Admin: 06/29/16 20:10 Dose: 75 mg Docusate Sodium (Colace) 100 mg PO BID [facility] Last Admin: 06/30/16 08:03 Dose: 100 mg Ezetimibe (Zetia) 10 mg PO 1999 [facility] Last Admin: 06/29/16 20:08 Dose: 10 mg Enoxaparin Sodium (Lovenox) 40 mg SUB-Q Q24H [facility] Last Admin: 06/29/16 12:18 Dose: 40 mg Furosemide (Lasix) 40 mg IV [id number] [facility] Last Admin: 06/30/16 08:02 Dose: 40 mg Glipizide (Glucotrol) 5 mg PO DAILY@0830 [facility] Last Admin: 06/30/16 07:54 Dose: 5 mg Sodium Chloride (Sodium Chloride 0.9%) 100 mls @ 25 mls/hr IV PRN PRN PRN Reason: Flush Insulin Aspart (Novolog (Dose)) 0 units SUB-Q TIDWM [facility] PRN Reason: Protocol Last Admin: 06/30/16 08:07 Dose: Not Given Insulin Glargine (Lantus (Dose)) 10 units SUB-Q Q12HR [facility] Last Admin: 06/30/16 08:02 Dose: 10 units Levothyroxine Sodium (Levothroid) 125 mcg PO QAMAC [facility] Last Admin: 06/30/16 07:21 Dose: 125 mcg Losartan Potassium (Cozaar) 50 mg PO BID [facility] Last Admin: 06/30/16 08:03 Dose: 50 mg Magnesium Hydroxide (Milk Of Magnesia) 30 ml PO DAILY PRN PRN Reason: Constipation Magnesium Oxide (Magnesium Oxide) 400 mg PO 1200,2100 [facility] Last Admin: 06/29/16 20:10 Dose: 400 mg Metoprolol Tartrate (Lopressor) 100 mg PO BID [facility] Last Admin: 06/30/16 08:03 Dose: 100 mg Multivitamins (One-A-Day) 1 tab PO DAILY [facility] Last Admin: 06/30/16 08:03 Dose: 1 tab Nitroglycerin (Nitrostat) 0.4 mg SL Q5M PRN PRN Reason: Chest Pain Pantoprazole Sodium (Protonix) 40 mg PO DAILY [facility] Last Admin: 06/30/16 08:02 Dose: 40 mg Petrolatum/Paraffin/Mineral Oil (Blistex) 1 each TP PRN PRN PRN Reason: Dry and/or chapped lips Potassium Chloride (K-Dur) 20 meq PO QAM [facility] Potassium Chloride (K-Dur) 20 meq PO QID [facility] Last Admin: 06/30/16 08:02 Dose: 20 meq Simvastatin (Zocor) 20 mg PO 1999 [facility] Last Admin: 06/29/16 20:08 Dose: 20 mg Sodium Chloride (Normal Saline 10ml Flush) 10 ml IV Q8HR [facility] Last Admin: 06/30/16 08:02 Dose: 10 ml Sodium Chloride (Normal Saline 10ml Flush) 10 ml IV PRN PRN - Problems: Assessment/Plan (1) Diastolic CHF, acute on chronic Status: AcuteAssessment/Plan: Clinically improved today Previous studies suggest primarily diastolic dysfxn, with pulmonary HTN Diuresis and CPAP have been helpful, appears better this am. Awaiting echo results. (2) Hypoxemia Status: AcuteAssessment/Plan: Improved, not having significant CO2 retention, Pt with hx pulmonary HTN, diastolic CHF (3) Diabetes mellitus type II, controlled Qualifiers: Diabetes mellitus complication status: without complication Diabetes mellitus nursing home insulin use: with nursing home use Qualifier Code: (E11.9) Type 2 diabetes mellitus without complications Status: ChronicAssessment/ Plan: Blood sugars sl high, 160-180s Continue to monitor; continue glipizide, lantus. Did have somewhat low BG yesterday, so Lantus and glipizide were held. No changes in tx so far, continue to monitor. (4) Hypertension Qualifiers: Hypertension type: essential hypertension Qualifier Code: (I10) Essential (primary) hypertension Status: ChronicAssessment/Plan: BP edging up with (previous) holding of metoprolol, will monitor. (5) CAD (coronary artery disease) Qualifiers: Coronary Disease-Associated Artery/Lesion type: [place] artery [place] vs. transplanted heart: [place] heart Associated angina: without angina Qualifier Code: (I25.10) Atherosclerotic heart disease of [place] coronary artery without angina pectoris Status: ChronicAssessment/Plan: Troponins remain 0.03, stable. Echo done 06/30 (6) Late effects of cerebrovascular disease, fluency disorder Status: ChronicAssessment/Plan: Continue on Plavix. (7) Hypomagnesemia Status: AcuteAssessment/Plan: On PO Magnesium, now at 1.9 (low attributed to Lasix use). Continue supplement. VTE Prophylaxis: Enoxaparin Disposition: Will go to Med/surg status as she is not needing bipap now. Anticipate return to facility in 1-3 days/appreciate PT/OT input regarding placement choices.
[2016-06-30] MEDS: ENOXAPARIN SODIUM 40 MG/0.4 ML SYRINGE SUB-Q SCH (12:02)
[2016-06-30] MEDS: Magnesium Oxide 400 MG TABLET PO SCH ×2 (12:02→21:43)
[2016-06-30] MEDS: SIMVASTATIN 10 MG TABLET PO SCH (19:44)
[2016-06-30] MEDS: EZETIMIBE 10 MG TABLET PO SCH (19:45)
[2016-06-30] MEDS: CLOPIDOGREL BISULFATE 75 MG TABLET PO SCH (19:45)
[2016-07-01] MEDS: LEVOTHYROXINE SODIUM 125 MCG TABLET PO SCH (07:50)
[2016-07-01] MEDS: GLIPIZIDE 5 MG TABLET PO SCH (07:55)
[2016-07-01] MEDS: INSULIN GLARGINE (DOSE) 100 UNITS/ML UNIT SUB-Q SCH ×2 (09:05→22:04)
[2016-07-01] MEDS: MULTIVITAMINS 1 TAB TABLET PO SCH (09:06)
[2016-07-01] MEDS: POTASSIUM CHLORIDE 20 MEQ TAB.PRT.SR PO SCH ×4 (09:06→20:10)
[2016-07-01] MEDS: FUROSEMIDE 40 MG/4 ML VIAL IV SCH ×2 (09:06→16:55)
[2016-07-01] MEDS: CLONIDINE HCL 0.1 MG TABLET PO SCH ×2 (09:06→20:12)
[2016-07-01] MEDS: LOSARTAN POTASSIUM 50 MG TABLET PO SCH ×2 (09:07→20:11)
[2016-07-01] MEDS: PANTOPRAZOLE 40 MG TABLET DR PO SCH (09:07)
[2016-07-01] MEDS: AMLODIPINE BESYLATE 5 MG TABLET PO SCH ×2 (09:07→20:12)
[2016-07-01] MEDS: DOCUSATE SODIUM 100 MG CAPSULE PO SCH ×2 (09:07→20:10)
[2016-07-01] MEDS: METOPROLOL TARTRATE 100 MG TABLET PO SCH ×2 (09:12→20:12)
[2016-07-01] MEDS ORDERED: LEVOFLOXACIN 250MG/D5W 50ML 250 MG in Premix (D5W) 50 ml 1 EACH IV SCH (10:00)
[2016-07-01] MEDS: INSULIN ASPART (DOSE) 100 UNITS/1 ML SUB-Q SCH ×3 (10:07→18:10)
[2016-07-01] MEDS ORDERED: PUMP TUBING ONE (10:19)
[2016-07-01] MEDS: SODIUM CHLORIDE 0.9% 100 ML IV PRN (10:29)
--- NOTE | 2016-07-01 11:00 | PDOC43 ---
- Subjective Chief Complaint: Dyspnea, CHF Patient reports feeling a little more tired today. Yest pm, had complained about leg pains, neck pains; perhaps a bit better today, but a lot better than admit. - Objective Vital Signs Temperature 97.8 F 07/01/16 06:31 Pulse Rate 54 07/01/16 06:31 Respiratory Rate 17 07/01/16 06:31 Blood Pressure 156/58 07/01/16 06:31 O2 Saturation by Pulse Oximetry 95 07/01/16 07:50 Oxygen Delivery Method Nasal Cannula Oxygen Flow Rate 2 Vital Signs Last 12 Hours Temp Pulse Resp BP Pulse Ox 07/01/16 07:50 95 07/01/16 06:31 97.8 F 54 17 156/58 95 07/01/16 04:25 97.9 F 54 15 135/60 94 07/01/16 02:00 16 07/01/16 00:30 97.9 F 55 16 149/62 94 Intake and Output 06/29/16 06/30/16 07/01/16 23:59 23:59 23:59 Intake Total 720 700 Output Total 1130 850 Balance -410 -150 General: Alert, Cooperative, Acute Distress HEENT: Atraumatic Lungs: Clear to Auscultation Bilaterally, Normal Air Movement Cardiovascular: Regular Rate and Rhythm Abdomen: Soft, Normal Bowel Sounds, Non-Distended Extremities: No Edema Skin: Normal Color Neurological: Normal Speech (speech sl slower) Psych/Mental Status: Other (sl less perky than yesterday am, but still better overall.) Laboratory 06/30/16 05:00 06/30/16 05:00 07/01/16 06/30/16 06/30/16 07:50 21:31 17:11 POC Capillary Glucose 157 H 204 H 188 H 06/30/16 11:15 POC Capillary Glucose 176 H Urine culture Enterococcus faecium, R to FQ, ampicillin. S to Synercid. Vancomycin not tested. Current Medications: Current meds reviewed in EMR. Active Medications Acetaminophen (Tylenol) 650 mg PO Q6H PRN PRN Reason: Pain or Temperature > 100.5 F Last Admin: 06/29/16 14:42 Dose: 650 mg Albuterol/Ipratropium (Duoneb) 3 ml NEB Q6H PRN PRN Reason: Wheezing Last Admin: 06/28/16 13:20 Dose: 3 ml Amlodipine Besylate (Norvasc) 5 mg PO BID [facility] Last Admin: 07/01/16 09:07 Dose: 5 mg Benzocaine/Menthol (Cepacol) 1 each PO PRN PRN PRN Reason: Sore Throat Bisacodyl (Dulcolax) 10 mg [place] DAILY PRN PRN Reason: Constipation Bisacodyl (Dulcolax) 5 mg PO DAILY PRN PRN Reason: Constipation Clonidine (Catapres) 0.2 mg PO BID [facility] Last Admin: 07/01/16 09:06 Dose: 0.2 mg Clopidogrel Bisulfate (Plavix) 75 mg PO 1999 [facility] Last Admin: 06/30/16 19:45 Dose: 75 mg Docusate Sodium (Colace) 100 mg PO BID [facility] Last Admin: 07/01/16 09:07 Dose: 100 mg Ezetimibe (Zetia) 10 mg PO 1999 [facility] Last Admin: 06/30/16 19:45 Dose: 10 mg Enoxaparin Sodium (Lovenox) 40 mg SUB-Q Q24H [facility] Last Admin: 06/30/16 12:02 Dose: 40 mg Furosemide (Lasix) 40 mg IV [id number] [facility] Last Admin: 07/01/16 09:06 Dose: 40 mg Glipizide (Glucotrol) 5 mg PO DAILY@0830 [facility] Last Admin: 07/01/16 07:55 Dose: 5 mg Sodium Chloride (Sodium Chloride 0.9%) 100 mls @ 25 mls/hr IV PRN PRN PRN Reason: Flush Levofloxacin/Dextrose 250 mg/ (Premix (D5W) 50 ml) 50 mls @ 50 mls/hr IV Q24H [facility] Insulin Aspart (Novolog (Dose)) 0 units SUB-Q TIDWM [facility] PRN Reason: Protocol Last Admin: 07/01/16 10:07 Dose: Not Given Insulin Glargine (Lantus (Dose)) 10 units SUB-Q Q12HR [facility] Last Admin: 07/01/16 09:05 Dose: 10 units Levothyroxine Sodium (Levothroid) 125 mcg PO QAMAC [facility] Last Admin: 07/01/16 07:50 Dose: 125 mcg Losartan Potassium (Cozaar) 50 mg PO BID [facility] Last Admin: 07/01/16 09:07 Dose: 50 mg Magnesium Hydroxide (Milk Of Magnesia) 30 ml PO DAILY PRN PRN Reason: Constipation Last Admin: 06/30/16 21:43 Dose: 30 ml Magnesium Oxide (Magnesium Oxide) 400 mg PO 1200,2100 [facility] Last Admin: 06/30/16 21:43 Dose: 400 mg Metoprolol Tartrate (Lopressor) 100 mg PO BID [facility] Last Admin: 07/01/16 09:12 Dose: 100 mg Multivitamins (One-A-Day) 1 tab PO DAILY [facility] Last Admin: 07/01/16 09:06 Dose: 1 tab Nitroglycerin (Nitrostat) 0.4 mg SL Q5M PRN PRN Reason: Chest Pain Pantoprazole Sodium (Protonix) 40 mg PO DAILY [facility] Last Admin: 07/01/16 09:07 Dose: 40 mg Petrolatum/Paraffin/Mineral Oil (Blistex) 1 each TP PRN PRN PRN Reason: Dry and/or chapped lips Potassium Chloride (K-Dur) 20 meq PO QID [facility] Last Admin: 07/01/16 09:06 Dose: 20 meq Simvastatin (Zocor) 20 mg PO 2000 [facility] Last Admin: 06/30/16 19:44 Dose: 20 mg Sodium Chloride (Normal Saline 10ml Flush) 10 ml IV Q8HR [facility] Last Admin: 07/01/16 09:07 Dose: 10 ml Sodium Chloride (Normal Saline 10ml Flush) 10 ml IV PRN PRN Last Admin: 07/01/16 09:07 Dose: 10 ml - Problems: Assessment/Plan (1) Diastolic CHF, acute on chronic Status: AcuteAssessment/Plan: Clinically improved Previous studies suggest primarily diastolic dysfxn, with pulmonary HTN Diuresis and CPAP have been helpful, appears better this am. Echo results: prelim: LVEF 50-55%, grade 2 diastolic dysfxn, severe LAE, mod thickened mitral valve, mod mitral calc, regurg. Small mobile mass proximal to anterior mitral leaflet annulus. Awaiting final report. (2) Hypoxemia Status: AcuteAssessment/Plan: Improved, not having significant CO2 retention, on 2 L O2. Pt with hx pulmonary HTN, diastolic CHF (3) Diabetes mellitus type II, controlled Qualifiers: Diabetes mellitus complication status: without complication Diabetes mellitus correction insulin use: with termite technician use Qualifier Code: (E11.9) Type 2 diabetes mellitus without complications Status: ChronicAssessment/ Plan: Blood sugars sl high, 157-204 Continue to monitor; continue glipizide, adjust lantus. (4) Hypertension Qualifiers: Hypertension type: essential hypertension Qualifier Code: (I10) Essential (primary) hypertension Status: ChronicAssessment/Plan: BP sl elevated now. Continue meds for now (5) CAD (coronary artery disease) Qualifiers: Coronary Disease-Associated Artery/Lesion type: [place] artery [place] vs. transplanted heart: [place] heart Associated angina: without angina Qualifier Code: (I25.10) Atherosclerotic heart disease of [place] coronary artery without angina pectoris Status: ChronicAssessment/Plan: Troponins remain 0.03, stable. Echo done 06/30 (6) Late effects of cerebrovascular disease, fluency disorder Status: ChronicAssessment/Plan: Continue on Plavix. (7) Hypomagnesemia Status: AcuteAssessment/Plan: On PO Magnesium, 1.9 on 06/30 (low attributed to Lasix use). Continue supplement. (8) Weakness Status: Acute (9) Enterococcus UTI Status: AcuteAssessment/Plan: Plan CT (uncontrasted due to iodine allergy), switch from Levofloxacin to Vancomycin. VTE Prophylaxis: Enoxaparin Disposition: Continue med/surg. Anticipate return to facility in 1-3 days/appreciate PT/OT input regarding placement choices.
[2016-07-01] MEDS ORDERED: VANCOMYCIN HCL 1.75 G in SODIUM CHLORIDE 0.9% 500 ML IV SCH (11:30)
[2016-07-01] MEDS: ENOXAPARIN SODIUM 40 MG/0.4 ML SYRINGE SUB-Q SCH (12:28)
[2016-07-01] MEDS: Magnesium Oxide 400 MG TABLET PO SCH ×2 (12:28→20:11)
[2016-07-01] MEDS: ACETAMINOPHEN 325 MG TABLET PO PRN (12:49)
--- NOTE | 2016-07-01 13:00 | CT ---
Exam Type: ABD/PELVIS W/O CON Date and Time: 07/01/2016 10:57 AM Clinical information: UTI with back pain and leg pain. Comparison: Pelvis CT dated 12/22/2006. Procedure: Imaging device: [employer] Aqu[employer] [address] scanner 1 mm axial images were obtained through the abdomen and pelvis. Stacked reconstructed 3, 4 and 5 mm images were photographed in the axial coronal and sagittal planes. No oral contrast was utilized for this examination. Exam: Without intravenous contrast. FINDINGS: Lung bases: There are bilateral pleural effusions identified with associated bibasilar atelectasis or infiltrate. There is evidence of prior median sternotomy. Dense calcification of the coronary vessels is present. Liver: Several scattered calcific foci are seen primarily affecting the right hepatic lobe. The peripheral hepatic contour is somewhat irregular. There also appears to be recanalization of the umbilical vein. Spleen: There is a vague low-attenuation focus identified within the posterior aspect of the spleen measuring 2.3 cm in size. An additional subtle low-attenuation focus is seen anteriorly measuring 1.6 cm in size. Gallbladder: Normal without enlargement or evidence of adjacent inflammatory changes. Pancreas: Normal without enlargement or evidence of adjacent inflammatory changes. Adrenal glands: Normal without enlargement or evidence of adjacent inflammatory changes. Abdominal aorta: Dense calcification of the aorta is observed without evidence of a focal aneurysm. Kidneys: The kidneys appear to be symmetric in size with no perinephric inflammatory changes are identified. No current findings of hydronephrosis are seen. Bowel structures: The visualized bowel is of normal caliber without evidence of dilatation or obstruction. No free fluid or mesenteric inflammatory changes are identified. Appendix: The appendix is well-visualized and appears to be of normal caliber. No periappendiceal inflammatory changes or CT findings of appendicitis are currently observed. Bladder: Decompressed due to an indwelling [place] catheter. Hernia: No discrete hernia is visualized. There is however infiltration of the subcutaneous tissues of both flanks suggesting diffuse tissue edema. There are also 3 separate low-attenuation masses within the subcutaneous tissues observed. One is seen within the epigastric region measuring 1.7 x 2.2 cm in size. A second is seen within the left aspect of the abdomen measuring 4.8 x 3.4 cm in size. And a third is seen within the left lower abdomen measuring 2.7 x 4.1 cm in size. These may reflect sebaceous cysts with the left lower quadrant finding appearing to have been present on the prior CT examination of 2006. Adenopathy: No significant enlarged adenopathy is visualized. Osseous structures: There is evidence of multilevel lumbar degenerative changes. And inferior endplate compression deformity of L2 is present of unknown age and etiology. Pelvic structures: There is infiltration of the tissues of the pelvis posterior to the bladder and surrounding the rectum with a small amount of free fluid. No focal fluid collection is visualized. IMPRESSION: 1. 2 vague nonspecific low-attenuation foci within the spleen. Though these may reflect hemangiomas, though other etiologies such as infection or metastasis cannot be excluded. 2. Diffuse subcutaneous tissue edematous changes, particularly evident along both flanks. 3. Bilateral pleural effusions with associated bibasilar atelectasis or infiltrate. 4. Numerous scattered hepatic calcifications which may reflect prior granulomatous disease. 5. An irregular peripheral hepatic contour with recanalization of the umbilical vein suggesting underlying hepatic cirrhosis. 6. A mild inferior endplate L2 compression deformity of unknown age and etiology. 7. 3. Low-attenuation subcutaneous tissue masses deep to the skin line within the epigastrium, the left midabdomen, and the left lower quadrant, which may reflect large sebaceous cyst. The left lower quadrant finding was present on prior CT exam of 2006 and appears to be stable. 8. Infiltration of the mesentery within the deep pelvis adjacent to the bladder and surrounding the rectum, possibly reflecting findings of underlying cystitis though the bladder is currently decompressed due to an indwelling [place] catheter. No organized fluid collection is visualized. 9. Dense atherosclerotic vascular calcification.
[2016-07-01] MEDS: CLOPIDOGREL BISULFATE 75 MG TABLET PO SCH (20:11)
[2016-07-01] MEDS: EZETIMIBE 10 MG TABLET PO SCH (20:13)
[2016-07-01] MEDS: SIMVASTATIN 10 MG TABLET PO SCH (20:13)
[2016-07-02 06:06] LABS: ABSOLUTE NEUTROPHIL COUNT 4.7 K/mm3 (1.8-7.7); BASO % 0.6 % (0.2-1.0); EOS # 0.1 (0.0-0.5); EOS % 2.1 % (0.9-2.9); HEMATOCRIT 34.1 % (37.0-47.0); HEMOGLOBIN 10.8 gm/l (12.0-16.0); IMM NEUT% 0.4 % (0-1); LYMPH # 1.1 (1.0-4.8); LYMPH % 15.7 % (15-45); MEAN CELL VOLUME 89.3 fl (81.0-99.0); MEAN CORPUSCULAR HEMOGLOBIN 28.3 pg (27.0-31.0); MEAN CORPUSCULAR HGB CONC 31.7 g/dl (33.0-37.0); MONO # 0.8 (0.0-0.8); MONO % 11.4 % (4-12); NEUT % 69.8 % (43-75); PLATELET COUNT 239 K/mm3 (130-400)
[2016-07-02 06:22] LABS: ALB/GLOB RATIO 0.9 (>1.0); ALBUMIN 2.6 gm/dL (3.5-5.7); CALCIUM 8.9 mg/dL (8.6-10.3)
[2016-07-02] MEDS: LEVOTHYROXINE SODIUM 125 MCG TABLET PO SCH (07:38)
[2016-07-02] MEDS: GLIPIZIDE 5 MG TABLET PO SCH (07:38)
[2016-07-02] MEDS: INSULIN GLARGINE (DOSE) 100 UNITS/ML UNIT SUB-Q SCH ×2 (09:37→21:32)
[2016-07-02] MEDS: CLONIDINE HCL 0.1 MG TABLET PO SCH ×2 (09:38→20:42)
[2016-07-02] MEDS: LOSARTAN POTASSIUM 50 MG TABLET PO SCH ×2 (09:38→20:41)
[2016-07-02] MEDS: MULTIVITAMINS 1 TAB TABLET PO SCH (09:38)
[2016-07-02] MEDS: POTASSIUM CHLORIDE 20 MEQ TAB.PRT.SR PO SCH ×4 (09:38→20:41)
[2016-07-02] MEDS: AMLODIPINE BESYLATE 5 MG TABLET PO SCH ×2 (09:38→20:41)
[2016-07-02] MEDS: DOCUSATE SODIUM 100 MG CAPSULE PO SCH ×2 (09:39→20:41)
[2016-07-02] MEDS: METOPROLOL TARTRATE 100 MG TABLET PO SCH ×2 (09:39→20:41)
[2016-07-02] MEDS: FUROSEMIDE 40 MG/4 ML VIAL IV SCH (09:39)
[2016-07-02] MEDS: INSULIN ASPART (DOSE) 100 UNITS/1 ML SUB-Q SCH ×3 (10:20→17:43)
[2016-07-02] MEDS ORDERED: IV START KIT ONE (10:43)
--- NOTE | 2016-07-02 11:20 | PDOC43 ---
- Subjective Chief Complaint: Dyspnea, CHF, weakness Feeling OK this AM but still weaker than nl. Breathing about baseline. Subjective: Reports Tolerating Diet Well, Denies Chest Pain, Denies Abdominal Pain, Denies Nausea, Denies Vomiting, Denies Fever, Denies Chills - Objective Vital Signs Temperature 97.9 F 07/02/16 07:51 Pulse Rate 54 07/02/16 07:51 Respiratory Rate 18 07/02/16 07:51 Blood Pressure 159/70 07/02/16 07:51 O2 Saturation by Pulse Oximetry 93 07/02/16 07:51 Oxygen Delivery Method Nasal Cannula Oxygen Flow Rate 1 Intake and Output 07/01/16 07/02/16 07/03/16 06:59 06:59 06:59 Intake Total 1420 2000 Output Total 1700 1200 Balance -280 800 General: Alert, Cooperative, No Acute Distress Lungs: Clear to Auscultation Bilaterally Cardiovascular: Regular Rate and Rhythm Abdomen: Soft, Non-Distended, No Tenderness, No Rebounding Extremities: Normal Pulses, No Edema Laboratory 07/02/16 05:30 07/02/16 05:30 Laboratory Tests 07/02/16 05:30 ESR 63 H Current Medications: Current meds reviewed in EMR. - Problems: Assessment/Plan (1) Diastolic CHF, acute on chronic Status: AcuteAssessment/Plan: Appears euvolemic and near baseline. Plan to transition back to usual dose of lasix. Echo results: LVEF 50-55%, grade 2 diastolic dysfxn, severe pulm htn. Small mobile mass proximal to anterior mitral leaflet annulus. (2) Enterococcus UTI Status: AcuteAssessment/Plan: Final cx results this AM with VRE- change abx to linazolid. (3) Diabetes mellitus type II, controlled Qualifiers: Diabetes mellitus complication status: without complication Diabetes mellitus senior care insulin use: with senior care use Qualifier Code: (E11.9) Type 2 diabetes mellitus without complications Status: ChronicAssessment/ Plan: Stable. Con't basal/bolus. (4) CAD (coronary artery disease) Qualifiers: Coronary Disease-Associated Artery/Lesion type: [place] artery [place] vs. transplanted heart: [place] heart Associated angina: without angina Qualifier Code: (I25.10) Atherosclerotic heart disease of [place] coronary artery without angina pectoris Status: ChronicAssessment/Plan: Stable. No evidence of ACS. (5) Late effects of cerebrovascular disease, fluency disorder Status: ChronicAssessment/Plan: At baseline. Continue on Plavix. (6) Hypertension Qualifiers: Hypertension type: essential hypertension Qualifier Code: (I10) Essential (primary) hypertension Status: ChronicAssessment/Plan: Stable. Continue usual meds. (7) Hypothyroidism Qualifiers: Hypothyroidism type: acquired Qualifier Code: (E03.9) Hypothyroidism, unspecified Status: ChronicAssessment/Plan: Stable at baseline. Con't usual levothyroxine. VTE Prophylaxis: Enoxaparin Disposition: Anticipate d/c to SNF in 1-2 days.
[2016-07-02] MEDS: ENOXAPARIN SODIUM 40 MG/0.4 ML SYRINGE SUB-Q SCH (12:29)
[2016-07-02] MEDS: PANTOPRAZOLE 40 MG TABLET DR PO SCH (12:29)
[2016-07-02] MEDS: Magnesium Oxide 400 MG TABLET PO SCH ×2 (12:29→20:42)
[2016-07-02] MEDS: FUROSEMIDE 40 MG TABLET PO SCH (16:18)
[2016-07-02] MEDS ORDERED: PUMP TUBING ONE (20:33)
[2016-07-02] MEDS: CLOPIDOGREL BISULFATE 75 MG TABLET PO SCH (20:41)
[2016-07-02] MEDS: EZETIMIBE 10 MG TABLET PO SCH (20:41)
[2016-07-02] MEDS: LINEZOLID IV SCH (20:42)
[2016-07-02] MEDS: NS IV SCH (20:42)
[2016-07-02] MEDS: SIMVASTATIN 10 MG TABLET PO SCH (20:42)
[2016-07-02] MEDS: SODIUM CHLORIDE 0.9% 100 ML IV PRN (20:43)
[2016-07-03 05:55] LABS: HEMATOCRIT 32.7 % (37.0-47.0); HEMOGLOBIN 10.4 gm/l (12.0-16.0); MEAN CELL VOLUME 89.3 fl (81.0-99.0); MEAN CORPUSCULAR HEMOGLOBIN 28.4 pg (27.0-31.0); MEAN CORPUSCULAR HGB CONC 31.8 g/dl (33.0-37.0); RED CELL DISTRIBUTION WIDTH 13.7 % (11.5-14.5)
[2016-07-03 06:22] LABS: CALCIUM 8.8 mg/dL (8.6-10.3)
[2016-07-03] MEDS: LEVOTHYROXINE SODIUM 125 MCG TABLET PO SCH (07:51)
[2016-07-03 07:56] VITALS: BP 156/71
[2016-07-03] MEDS: INSULIN GLARGINE (DOSE) 100 UNITS/ML UNIT SUB-Q SCH (08:34)
[2016-07-03] MEDS: INSULIN ASPART (DOSE) 100 UNITS/1 ML SUB-Q SCH ×2 (08:34→12:06)
[2016-07-03] MEDS: POTASSIUM CHLORIDE 20 MEQ TAB.PRT.SR PO SCH ×2 (08:35→12:06)
[2016-07-03] MEDS: FUROSEMIDE 40 MG TABLET PO SCH (08:35)
[2016-07-03] MEDS: DOCUSATE SODIUM 100 MG CAPSULE PO SCH (08:35)
[2016-07-03] MEDS: PANTOPRAZOLE 40 MG TABLET DR PO SCH (08:35)
[2016-07-03] MEDS: LOSARTAN POTASSIUM 50 MG TABLET PO SCH (08:36)
[2016-07-03] MEDS: MULTIVITAMINS 1 TAB TABLET PO SCH (08:36)
[2016-07-03] MEDS: CLONIDINE HCL 0.1 MG TABLET PO SCH (08:36)
[2016-07-03] MEDS: GLIPIZIDE 5 MG TABLET PO SCH (08:36)
[2016-07-03] MEDS: AMLODIPINE BESYLATE 5 MG TABLET PO SCH (08:36)
[2016-07-03] MEDS: METOPROLOL TARTRATE 100 MG TABLET PO SCH (08:36)
[2016-07-03] MEDS: NS IV SCH (08:40)
[2016-07-03] MEDS: LINEZOLID IV SCH (08:40)
[2016-07-03] MEDS: Magnesium Oxide 400 MG TABLET PO SCH (11:28)
[2016-07-03] MEDS ORDERED: L.ACIDOPH,SAL/B.BIF/S.THER 175 MG 1 CAP PO SCH (12:00)
--- NOTE | 2016-07-03 13:35 | DS ---
Enma Negron ADMIT DATE: 06/28/2016 DISCHARGE DATE: 07/03/2016 ADMIT DIAGNOSES: 1. Diastolic congestive heart failure exacerbation/pulmonary hypertension. 2. Acute respiratory failure secondary to above requiring BiPAP. 3. Urinary tract infection present on admission. 4. Multiple other chronic medical problems at baseline including diabetes, stable coronary artery disease, hypertension, hypothyroidism. DISCHARGE DIAGNOSES: 1. Diastolic congestive heart failure exacerbation with underlying pulmonary hypertension. 2. Urinary tract infection with cultures growing out vancomycin resistant enterococcus. 3. Multiple other chronic medical problems at baseline throughout her hospitalization including diabetes, coronary artery disease, hypertension, hypothyroidism. ADMIT HISTORY AND PHYSICAL: Please see Dr. Pabon's note for details. Briefly, Ms. Negron is an 81-year-old female with known underlying pulmonary hypertension and diastolic heart failure as well as a recent stroke back in March 2016. She presented to the emergency room on the day of admission with a several day history of gradual worsening swelling in her legs. She then developed increasing shortness of breath on the day of admission. In the ER she was worked up and found to have evidence of an acute congestive heart failure exacerbation. She was admitted to the hospitalist service. HOPSITAL COURSE: She was admitted. We did undergo a more aggressive diuresis with good effect. She had an echocardiogram done which showed an ejection fraction of 50% to 55%. Diastolic dysfunction noted as well as severe pulmonary hypertension. No other significant abnormalities noted. She did get good diuresis and good improvement in her symptoms and by day of discharge she was euvolemic. In regards to her urinary tract infection she was initially started on Rocephin, however, she did end up growing out enterococcus. She was initially transitioned over to vancomycin, however, final cultures results came back on 07/02/2016 showing vanco resistant enterococcus and she was changed over to linezolid. She did have some continued weakness attributable to this urinary tract infection. By day of discharge, however, she was working well with physical therapy and occupational therapy and it was felt that she was appropriate for discharge to assisted facility. DISCHARGE MEDICATIONS: 1. Linezolid 600 mg by mouth twice daily x10 days. 2. Potassium chloride 10 mEq by mouth twice daily. 3. Lantus 13 units subcutaneous twice daily. 4. Tylenol as needed. 5. Lasix 80 mg by mouth twice daily. 6. Cranberry 500 mg by mouth twice daily. 7. Clonidine 0.2 mg by mouth twice daily. 8. Nitrostat as needed. 9. Probiotics two pills by mouth daily. 10. Glucotrol 5 mg by mouth every morning. 11. Vytorin 10/20 one by mouth at bedtime. 12. Plavix 75 mg by mouth daily. 13. Metoprolol 100 mg by mouth twice daily. 14. Levothyroxine 125 mg by mouth daily. 15. Protonix 40 mg by mouth daily. 16. Multivitamin daily. 17. Losartan 50 mg by mouth twice daily. 18. Amlodipine 5 mg by mouth twice daily. DISCHARGE FOLLOW UP: Will be with Dr. Martinez in the next 1 to 2 weeks. DISCHARGE LOCATION: [facility] facility. Further care is dictated by clinical course. JOB: [id number] CC: Dr. Martinez
== END 2016-07-03 13:20 | disposition home or self-care (01) | DRG 291 ==
LOC: ED 09:53 → ICU 11:45 → MS 06-30 16:05
PROVIDERS: ADMIT Family Medicine; ATTEND Family Medicine
DX: I11.0 Hypertensive heart disease with heart failure (principal); J96.00 Acute respiratory failure, unspecified whether with hypoxia or hypercapnia; E87.3 Alkalosis; N39.0 Urinary tract infection, site not specified; J90 Pleural effusion, not elsewhere classified; I50.31 Acute diastolic (congestive) heart failure; E11.9 Type 2 diabetes mellitus without complications; Z79.4 Long term (current) use of insulin; I25.10 Atherosclerotic heart disease of native coronary artery without angina pectoris; E83.42 Hypomagnesemia; T50.2X5A Adverse effect of carbonic-anhydrase inhibitors, benzothiadiazides and other diuretics, initial encounter; I69.923 Fluency disorder following unspecified cerebrovascular disease; B95.2 Enterococcus as the cause of diseases classified elsewhere; E03.9 Hypothyroidism, unspecified; K22.70 Barrett's esophagus without dysplasia; E78.5 Hyperlipidemia, unspecified; Z66 Do not resuscitate; I51.7 Cardiomegaly